=== PATIENT | female | born 1970 | race Caucasian/White ===

== ENCOUNTER → 2020-02-10 | Outpatient (CLI) | payer BC ==
[~2020-02-10] MED LIST: JANU100T PO; LISI10TA4 PO; METF-838 PO; PRAV80TA2 PO; RABE1TAB PO; VITA200028 PO
[2020-02-10 11:20] VITALS: BP 124/76
--- NOTE | 2020-02-10 13:07 | REP ---
POSTBIOPSY MAMMOGRAM, LEFT BREAST: Postbiopsy mammogram left breast performed following ultrasound-guided biopsy of a complex cystic nodule in the outer left breast. A biopsy clip was placed. Today's mammogram performed in the ML and CC projections show the metallic clip to be located posterior and inferior to the nodule seen on the mammogram from [facility], 01/11/2020. Therefore, the nodule identified by ultrasound does not correspond to the nodule on the mammogram. The patient should have stereotactic biopsy of the nodule in the outer left breast.
--- NOTE | 2020-02-10 19:10 | REP ---
Ultrasound-guided left breast biopsy. The procedure was performed by ARABELLA Beckman, under the direct supervision of Dr. Sutton. The risks and benefits of the procedure were explained to the patient and informed consent was obtained both verbally and written. Directly prior to the start of the procedure, a formal timeout was completed in the procedure room. The left breast complex cyst was localized using ultrasound guidance. The skin was prepped and draped in a sterile fashion. 10 ml of buffered lidocaine was used as a local anesthetic. Using ultrasound guidance a 14-gauge [employer] Marquee biopsy needle was inserted and 3 core biopsy samples were obtained. After the second sample was obtained. The target completely disappeared. A third biopsy was done for good measure, and a marker clip was placed at the biopsy site under ultrasound guidance. The patient tolerated the procedure well and there were no immediate complications. After the appropriate monitored convalescence the patient was discharged from the department. Reviewed by ARABELLA Gaxiola 02/10/2020 11:27 A Electronically Signed by Zack Sutton MD 02/10/2020 07:02 P
== END ==
LOC: M WHCPRO 09:52
PROVIDERS: ATTEND Nurse Practitioner Family
DX: N60.02 Solitary cyst of left breast (principal); Z88.8 Allergy status to other drugs, medicaments and biological substances

== ENCOUNTER → 2022-02-18 | Outpatient (CLI) | payer BC ==
[~2022-02-18] MED LIST changes: +LISI10TA22 PO; -LISI10TA4 PO; -RABE1TAB PO; +RABE1TAB4 PO; +TRUL10IN SC
== END ==
LOC: M LABSMTC 10:46
PROVIDERS: ATTEND Anesthesiology
DX: Z01.812 Encounter for preprocedural laboratory examination (principal)

== ENCOUNTER 2022-02-22 06:26 | Day surgery (SDC) | payer BC ==
[~2022-02-22] VITALS: Ht 162.6 cm; Wt 88.5 kg
[2022-02-22] MEDS ORDERED: propofoL 200 MG/20 ML VIAL As Ordered ONE (06:36)
[2022-02-22] MEDS ORDERED: LIDOCAINE 2% 100MG/5ML SDV (FOR ANES.) As Ordered ONE (06:36)
[2022-02-22] MEDS ORDERED: NS 1,000 ML IV ONE (07:35)
[2022-02-22 08:24] VITALS: BP 117/81
== END 2022-02-22 08:26 | disposition home or self-care (01) ==
LOC: M OPP 06:26
PROVIDERS: ATTEND Internal Medicine Gastroenterology
DX: Z12.11 Encounter for screening for malignant neoplasm of colon (principal); K63.5 Polyp of colon; K64.8 Other hemorrhoids; K92.1 Melena; Z79.02 Long term (current) use of antithrombotics/antiplatelets; Z79.84 Long term (current) use of oral hypoglycemic drugs; Z79.899 Other long term (current) drug therapy; Z88.5 Allergy status to narcotic agent; Z88.8 Allergy status to other drugs, medicaments and biological substances; Z87.891 Personal history of nicotine dependence